=== PATIENT | male | born 1950 | race Caucasian/White ===

== ENCOUNTER 2023-08-26 11:27 | Day surgery (SDC) | payer MEDICARE ==
[2023-08-26] MEDS: LACTATED RINGERS 1,000 ML IV ONE (11:44)
[2023-08-26] MEDS ORDERED: ONDANSETRON 4 MG/2 ML VIAL ONE (11:57)
[2023-08-26] MEDS: fentaNYL (PF) 50 MCG/ML 2 ML AMP IVP ONE (12:24)
[2023-08-26] MEDS: MIDAZOLAM 2 MG/2 ML VIAL IVP ONE (12:24)
[2023-08-26] MEDS: ONDANSETRON 4 MG/2 ML VIAL IVP ONE (12:39)
[2023-08-26] MEDS: DEXAMETHASONE SOD PHOSPHATE 4 MG/ML 1 ML VIAL IVP ONE (12:40)
--- NOTE | 2023-08-26 12:55 | P.ANPRN ---
Procedure Note - Anesthesia - Nerve Block Performed Left Adductor Canal Single Time Out Performed: Yes Date of Procedure: 08/26/23 Procedure Start Time: : Procedure Stop Time: Location of Patient: PreOp Indication: Acute Post-Operative Pain, Requested by Surgeon Sedation Type: Sedate with meaningful contact maintained Preparation: Sterile Prep Position: Supine Needle Types: Pajunk Needle Gauge: 21 Ultrasound used to visualize needle placement: Yes Ultrasound used to observe medication spread: Yes Injectate: 0.5% Ropivacaine (see comment for volume) (15 ml + 10 ml NS + 4 mg Dexamethasone) Blood Aspirated: No Pain Paresthesia on Injection Noted: No Resistance on Injection: Normal Image Stored and Saved: Yes Events: Uneventful and Well Tolerated
[2023-08-26] MEDS ORDERED: PROPOFOL 10 MG/ML 20 ML VIAL IV ONE (13:00)
[2023-08-26] MEDS ORDERED: NEOSTIGMINE 1 MG/ML 10 ML VIAL ONE (13:00)
[2023-08-26] MEDS ORDERED: HYDROmorphone (PF) 1 MG/ML ONE (13:00)
[2023-08-26] MEDS ORDERED: ROPIVACAINE 5 MG/ML 30 ML VIAL ONE (13:00)
[2023-08-26] MEDS ORDERED: ePHEDrine 50 MG/ML 1 ML VIAL ONE (13:00)
[2023-08-26] MEDS ORDERED: LIDOCAINE 1% INJ 10MG/ML (20 ML MDV) ONE (13:00)
[2023-08-26] MEDS ORDERED: DEXAMETHASONE SOD PHOSPHATE 4 MG/ML 1 ML VIAL ONE (13:00)
[2023-08-26] MEDS ORDERED: fentaNYL (PF) 50 MCG/ML 2 ML AMP ONE (13:00)
[2023-08-26] MEDS ORDERED: ROCURONIUM 10 MG/ML (5 ML VIAL) IV ONE (13:00)
[2023-08-26] MEDS ORDERED: PHENYLEPHRINE 10 MG/ML VIAL ONE (13:00)
[2023-08-26] MEDS ORDERED: SUCCINYLCHOLINE CHLORIDE 200 MG/10 ML VIAL IV ONE (13:00)
[2023-08-26] MEDS ORDERED: MIDAZOLAM 2 MG/2 ML VIAL ONE (13:00)
[2023-08-26] MEDS ORDERED: GLYCOPYRROLATE 0.2 MG/ML 2 ML VIAL ONE (13:00)
[2023-08-26] MEDS: SODIUM CHLORIDE 0.9% 50 ML with ceFAZolin 2,000 MG IV ONE (13:02)
[2023-08-26] MEDS: ceFAZolin 1,000 MG in SODIUM CHLORIDE 0.9% 1,000 ML IRRIGATION ONE (13:41)
[2023-08-26] MEDS ORDERED: ONDANSETRON 4 MG/2 ML VIAL IVP PRN (14:55)
[2023-08-26] MEDS ORDERED: NALOXONE 0.4 MG/ML 1 ML VIAL IV PRN (14:55)
[2023-08-26] MEDS ORDERED: MAGNESIUM HYDROXIDE 2,400 MG/30 ML CUP PO PRN (14:55)
--- NOTE | 2023-08-26 14:56 | P.OP ---
Date of Procedure: 08/26/23 Preoperative Diagnosis: Left inferior pole patella fracture and patellar tendon rupture Postoperative Diagnosis: same Procedure(s) Performed: Left knee partial patellectomy and patellar tendon repair Anesthesia: DUNIA, regional Surgeon: Edvin Mccormack Estimated Blood Loss (ml): 100 IV fluids (ml): 800 Pathology: none sent Condition: stable Disposition: PACU Indications for Procedure: The patient is very pleasant relatively healthy 73-year-old male who sustained a fall resulting in an isolated injury to his left knee. I saw the patient in the office earlier this week and he had a palpable gap at the inferior pole of the patella and disruption of the extensor mechanism with an inability to perform a straight leg raise. His x-rays showed an inferior pole patella fracture and a high riding patella. We discussed that clinically and radiographically he had evidence of a patellar tendon avulsion off of the inferior pole of the patella. Given the patient's age, state of good health, and activity level I recommended open repair with a 4 strand 3 tunnel procedure. We discussed this procedure at length as well as the risks and complications. Risks discussed include but are certainly not limited to risk of anesthesia, superficial infection, deep infection, delayed wound healing, superficial wound necrosis, rerupture of the patellar tendon, fracture of the patella, extensor lag, stiffness, disruption of the extensor mechanism, DVT, PE, other medical complications, an inability to regain preinjury level of function, and possibly loss of life or limb. He understands all these are the most common complications there are other less com mon complications possible. He provided both his verbal and written consent to go forward with surgery. Operative Findings: There was a small inferior pole patella fracture and complete disruption of the patellar tendon from the inferior pole of the patella as well as disruption of the medial and lateral retinaculum. Description of Procedure: the patient was identified in preoperative holding and the correct left leg was marked with my initials. I reviewed the consent form with the patient and his . All their questions were answered. The patient was then brought back to the operating room. He was positioned on the OR table where general anesthetic and preoperative antibiotics were given. A tourniquet was applied to the proximal aspect of the left thigh but was not used during the procedure. All bony prominences were well-padded. A bone foam ramp was placed on the left leg to facilitate imaging. A nonsterile drape was applied occluding the left leg. A presurgical scrub was performed with a chlorhexidine scrub brush and water. The patient's left leg was then prepped and draped in the standard sterile fashion. Prior to starting surgery timeout was performed identifying the correct patient, operative extremity, and procedure. I began by outlining a straight anterior longitudinal incision to the knee starting 3 fingerbreadths above the patella and ending just medial to the tibial tubercle. Skin incision was made with a scalpel and dissection was carried down to the subcutaneous tissue with electrocautery. The fascia over the quadriceps was incised longitudinally in line with the skin incision. Immediately upon dissecting deep to the fascia there was an obvious disruption in the extensor mechanism at the inferior pole of the patella. There was a large dempsey of blood from the knee joint. As I explored the wound there was a complete avulsion of the patellar tendon from the inferior pole of the patella and a small fracture embedded within the patellar tendon. The wound was thoroughly irrigated including the joint with sterile saline. The small bony fragment from the patellar tendon was excised using electrocautery. Using #2 FiberWire a 4 strand repair of the patellar tendon was performed using a modified Krakw type stitch. A 2.5 mm drill bit was used to create a path down the central aspect of the patella starting distally and exiting at the superior pole of the patella. Electrocautery was used to make a small opening a this level. Using a suture passer from distal to proximal and 0 Vicryl suture was used to shuttle the middle 2 strands of the repair superiorly. I then placed an additional 2 tunnels using a 2.0 mm drill bit medially and laterally to the previously placed 2.5 tunnel. The most medial and lateral strands were then passed from inferior to superior. fully extended I then tied both strands over the bony bridge superiorly at the patella nicely reapproximating the patellar tendon to the inferior pole of the patella. The retinaculum was repaired with [id number] Vicryl sutures. The patellar tendon was nicely reapproximated to the patella. The wound was then thoroughly irrigated and closed in layers. A sterile dressing was applied followed by web roll, and Matti wrap, and a knee immobilizer.. The patient was then awoken from his anesthetic, transferred to neuro table to the gurney, and brought to recovery having tolerated procedure well. PLAN: He is going to stay overnight for pain control and physical therapy. He'll be given 2 doses of postoperative antibiotics. He'll be transitioned from IV to oral pain medication. He will likely discharge home tomorrow.
--- NOTE | 2023-08-26 15:01 | FL ---
EXAMINATION TYPE: FL guidance operating room, XR knee limited LT Intraoperative/procedural fluoroscop ic services were provided. Total fluoroscopy time is 13.9 seconds with a total of 4 submitted images to PACS. Please see the operative/procedural note for further details. DAP: 0.1764 Gycm2
[2023-08-26] MEDS: HYDROmorphone 0.5 MG/0.5 ML SYRINGE IVP ONE (15:10)
[2023-08-26] MEDS: LACTATED RINGERS 1,000 ML IV SCH (16:16)
[2023-08-26] MEDS: Pre Op ABX Message 1 EACH MISC MISCELLANE ONE (16:16)
[2023-08-26] MEDS: SODIUM CHLORIDE 0.9% 1,000 ML IV SCH (16:16)
[2023-08-26] MEDS: ASPIRIN 81 MG PO SCH (20:12)
[2023-08-26] MEDS: SENNOSIDES-DOCUSATE SODIUM 1 EACH TAB PO SCH (20:13)
[2023-08-26] MEDS ORDERED: IBUPROFEN 800 MG TAB PO PRN (20:49)
[2023-08-26] MEDS ORDERED: ACETAMINOPHEN TAB 325 MG TAB PO PRN (20:49)
[2023-08-26] MEDS: CALCIUM CARBONATE 500 MG CHEWABLE PO PRN (23:27)
[2023-08-27 03:35] VITALS: PULSE 79
[2023-08-27] MEDS: HYDROcodone/APAP 5-325MG 1 EACH TAB PO PRN (06:21)
[2023-08-27] MEDS: HYDROmorphone 0.5 MG/0.5 ML SYRINGE IVP PRN (07:37)
[2023-08-27 08:45] VITALS: BP 124/69; RESP 18; TEMP 98.6
[2023-08-27 09:19] LABS: Basophils # (A) 0.01 X 10*3/uL (0.00-0.10); Basophils % (A) 0.1 %; Eosinophils # (A) 0 X 10*3/uL (0.04-0.35); Eosinophils % (A) 0 %; HCT 33.6 % (39.6-50.0); Lymphocytes # (A) 0.76 X 10*3/uL (0.90-5.00); Lymphocytes % (A) 6.3 %; MCH 32.3 pg (27.0-32.0); MCHC 32.7 g/dL (32.0-37.0); MCV 98.5 FL (80.0-97.0); Mean Platelet Volume 9.3 FL (9.5-12.2); Monocytes # (A) 0.73 X 10*3/uL (0.20-1.00); NRBC Per 100 WBC 0 X 10*3/uL (0.00-0.01); Neutrophils # (A) 10.59 X 10*3/uL (1.80-7.70); Neutrophils % (A) 87.3 %; Platelet Count 302 X 10*3/uL (140-440); RBC 3.41 X 10*6/uL (4.40-5.60); RDW 14.7 % (11.5-14.5); WBC 12.13 X 10*3/uL (4.50-10.00)
[2023-08-27] MEDS: EZETIMIBE 10 MG TAB PO SCH (09:21)
[2023-08-27] MEDS: HYDROcodone/APAP 10-325MG 1 EACH TAB PO PRN (09:21)
[2023-08-27] MEDS: VIT A,C & E-LUTEIN-MINERALS 1 EACH TAB PO SCH (09:21)
[2023-08-27] MEDS: ASCORBIC ACID 500 MG TAB PO SCH (09:21)
[2023-08-27] MEDS: MAGNESIUM OXIDE 400 MG TAB PO SCH (09:21)
[2023-08-27] MEDS: ATORVASTATIN 10 MG TAB PO SCH (09:21)
--- NOTE | 2023-08-27 12:49 | P.DS ---
Providers Date of admission: Tuesday08/26/2023 Attending physician: Edvin Mccormack Consults: 08/26/23 14:55 Consult Physician Routine Consulting Provider: Chace Olivo Consult Reason/Comments: post op medical management Do you want consulting provider notified?: Yes Primary care physician: Simeon Lorenzo [facility] Hospital Course: This is a very pleasant relatively healthy 73-year-old male who sustained an i solated injury to his left knee when he fell off a ladder. He was found to have a patellar tendon disruption. He was admitted under my care yesterday and underwent uncompensated surgery. He was transferred to the orthopedic floor in stable condition. He received 2 doses of postoperative antibiotics. He was transitioned from IV to oral pain medications. He worked with physical therapy and did well. I met the patient postoperative day #1 and he was doing well. He was able to actively plantar flex perspective ankle and his toes. His thigh and calf are soft. His knee immobilizer was in place. Internal medicine was consulted. He ultimately did well and was cleared for discharge home. Plan - Discharge Summary Discharge Rx Participant: Yes New Discharge Prescriptions: New HYDROcodone/APAP 5-325MG [Portal 5-325] 1 - 2 tab PO Q6HR PRN #32 tab PRN Reason: Pain Docusate [Colace] 100 mg PO BID #28 capsule No Action Acetaminophen Tab [Tylenol] 1,300 mg PO Q6H PRN PRN Reason: Pain Vit C/E/Zn/Coppr/Lutein/Zeaxan [Preservision Areds 2 Softgel] 1 each PO DAILY Ibuprofen [Motrin Ib] 800 mg PO Q8H PRN PRN Reason: Pain Ezetimibe/Simvastatin [Vytorin 10-20 mg Tablet] 1 tab PO QAM Aspirin 81 mg PO DAILY Ascorbic Acid [Vitamin C] 1,000 mg PO DAILY Magnesium 1 tab PO DAILY Discharge Medication List Acetaminophen Tab [Tylenol] 1,300 mg PO Q6H PRN 08/24/23 [History] Ascorbic Acid [Vitamin C] 1,000 mg PO DAILY 08/24/23 [History] Aspirin 81 mg PO DAILY 08/24/23 [History] Ezetimibe/Simvastatin [Vytorin 10-20 mg Tablet] 1 tab PO QAM 08/24/23 [History] Ibuprofen [Motrin Ib] 800 mg PO Q8H PRN 08/24/23 [History] Magnesium 1 tab PO DAILY 08/24/23 [History] Vit C/E/Zn/Coppr/Lutein/Zeaxan [Preservision Areds 2 Softgel] 1 each PO DAILY 08/24/23 [History] Docusate [Colace] 100 mg PO BID #28 capsule 08/26/23 [Rx] HYDROcodone/APAP 5-325MG [Portal 5-325] 1 - 2 tab PO Q6HR PRN #32 tab 08/26/23 [Rx] Follow up Appointment(s)/Referral(s): Edvin Mccormack MD [Medical Doctor] - 2 Weeks Activity/Diet/Wound Care/Special Instructions: 1. Weight bear as tolerated on your left leg with crutches and your knee immobilizer on at all times 2. Leave knee immobilizer on at all times, except for hygiene 3. It is ok to take off the outer ADRIAN wrap and white cotton padding 2 days after surgery, but leave the surgical dressing in place over your incision (if you prefer, it is okay to leave the ADRIAN wrap and padding on until your first visit) 4. Take pain medications as prescribed - while taking NORCO for pain drink lots of water and take COLACE to prevent constipation 5. Take 81 mg of Aspirin twice a day for blood clot prevention 6. You will need to follow-up in the office in 2 weeks for your first post- operative check 7. Please call the office with any questions or concerns - [phone] Discharge Disposition: HOME WITH HOME HEALTH SERVICES
--- NOTE | 2023-08-27 16:12 | CONS ---
CONSULTATION REASON FOR CONSULTATION: Advice regarding GERD and other medical issues, requested by Orthopedics. HISTORY OF PRESENT ILLNESS: This is a 73-year-old gentleman with a past medical history of GERD, hyperlipidemia, underwent left knee partial patellectomy and patellar tendon repair by Dr. Mccormack. No chest pain. No palpitations. No fever. PAST MEDICAL HISTORY: Reviewed include GERD, hyperlipidemia. Rest of the history and rest of the chart is also reviewed. HOME MEDICATIONS: Reviewed include Vytorin, and doses and rest of medications reviewed. ALLERGIES: None. FAMILY HISTORY: History of myocardial infarction in the family. SOCIAL HISTORY: Previous history of smoking. REVIEW OF SYSTEMS: A 14-point review is negative except as mentioned. PHYSICAL EXAMINATION: VITAL SIGNS: Pulse is 79, blood pressure is 124/69, and respirations 18. HEENT: Conjunctivae normal. NECK: No JVD. CARDIOVASCULAR: S1 and S2. ABDOMEN: Soft and nontender. LEGS: Status post surgery. NERVOUS SYSTEM: Nonfocal. LABORATORY DATA: WBC n. Rest of the labs are noted. ASSESSMENT: 1. Status post left knee partial patellectomy and patellar tendon repair. 2. Gastroesophageal reflux disease. 3. Hyperlipidemia. 4. History of nicotine dependence remotely. RECOMMENDATIONS AND DISCUSSION: This is a 73-year-old gentleman surgery. The patient is medically stable at this time. I recommend resume the home medications. Closely follow with primary physician. DVT prophylaxis. Rest of the recommendations per Orthopedic Surgery. See orders for details. MMODL / IJN: [id number] / MTDD
== END 2023-08-27 14:03 | disposition home health service (06) ==
LOC: OR 11:27 → 4SSUR 14:41 → OR 08-27 14:03
PROVIDERS: ATTEND Orthopaedic Surgery
DX: S82.092A Other fracture of left patella, initial encounter for closed fracture (principal); G89.18 Other acute postprocedural pain; E78.5 Hyperlipidemia, unspecified; Z79.899 Other long term (current) drug therapy; Z87.891 Personal history of nicotine dependence; W11.XXXA Fall on and from ladder, initial encounter
CPT/HCPCS: 85025; 73560; 27524; 64447; J2250; J1100; J0690 ×2; J2405; J3010; J1170 ×2